=== PATIENT | male | born 1980 | race Caucasian/White ===

== ENCOUNTER 2019-12-17 21:09 | Emergency (ER) | payer OTHER, BC, SELFPAY ==
[2019-12-17 21:08] VITALS: BP 141/93; PULSE 85; RESP 20; TEMP 36.8; O2SAT 98
[2019-12-17 21:16] VITALS: RESP 20; O2SAT 99
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
[2019-12-17 22:33] VITALS: BP 121/86; PULSE 82; RESP 14; O2SAT 99
== END 2019-12-17 22:34 | disposition home or self-care (01) ==
LOC: ANHED 22:22
PROVIDERS: Emergency Provider Emergency Medicine
DX: Z04.1 Encounter for examination and observation following transport accident (principal); F10.129 Alcohol abuse with intoxication, unspecified; V48.5XXA Car driver injured in noncollision transport accident in traffic accident, initial encounter
CPT/HCPCS: 99282